=== PATIENT | female | born 1965 | race Caucasian/White ===

== ENCOUNTER 2018-02-10 16:25 | Emergency (ER) | payer OTHER ==
[~2018-02-10] VITALS: Ht 170.2 cm; Wt 88.5 kg
[2018-02-10 16:28] VITALS: BP 111/48
--- NOTE | 2018-02-10 16:33 | NUR ---
Patient transferred to bed 4 via wheelchair by tech. RN evaluating patient at bedside.
--- NOTE | 2018-02-10 16:45 | NUR ---
RIGHT SIDED HEAD/EYE PAIN S/P FALL LAST NIGHT; DENIES LOC; ALSO C/O RIGHT KNEE PAIN . BRUISES NOTED TO RIGHT FORHEAD. DENIES N/V/D; SKIN IS PINK/WARM/DRY; LUNGS CLEAR BL; HR EVEN AND REGULAR; PT DENIES ANY FEVER, CP, SOB, OR COUGH AT THIS TIME; PATIENT STATES PAIN OF 10/10 AT THIS TIME; VSS; PATIENT POSITIONED FOR COMFORT; HOB ELEVATED; BEDRAILS UP X2; BED DOWN. ER MD MADE AWARE OF PT STATUS.
[2018-02-10] MEDS ORDERED: KETOROLAC 15 MG/ML VIAL IM ONE (17:40)
[2018-02-10 18:47] VITALS: BP 118/52
[2018-02-10 19:37] LABS: BARBITURATE, URINE NEG. ng/ml (NEG <=200); BENZODIAZEPINE, URINE NEG. ng/mL (NEG <=200); CANNABINOID, URINE NEG. ng/mL (NEG <=50); COCAINE, URINE NEG. ng/mL (NEG <=300); OPIATE, URINE NEG. ng/mL (NEG <=2000); PHENCYCLIDINE SCREEN,URINE POS. ng/mL (NEG <=25)
== END 2018-02-10 18:47 | disposition home or self-care (01) ==
LOC: MED 16:25
DX: S00.11XA Contusion of right eyelid and periocular area, initial encounter (principal); F19.10 Other psychoactive substance abuse, uncomplicated; F10.99 Alcohol use, unspecified with unspecified alcohol-induced disorder; F17.210 Nicotine dependence, cigarettes, uncomplicated; Z88.8 Allergy status to other drugs, medicaments and biological substances; W19.XXXA Unspecified fall, initial encounter; Y93.89 Activity, other specified; Y92.89 Other specified places as the place of occurrence of the external cause; Y99.8 Other external cause status
CPT/HCPCS: 70450; 80305; 96372; 99285; J1885

== ENCOUNTER 2018-04-17 00:01 | Emergency (ER) | payer MEDICAID, OTHER ==
[~2018-04-17] VITALS: Ht 170.2 cm; Wt 89.8 kg
[2018-04-17 00:17] VITALS: BP 114/67
--- NOTE | 2018-04-17 00:19 | NUR ---
TO LOBBY A/W BED, ELLEN PEÑA NOTED
--- NOTE | 2018-04-17 00:45 | NUR ---
PT TAKEN TO BED 6
[2018-04-17] MEDS ORDERED: NACL 0.9% 1,000 ML IV ONE ×2 (01:00→02:40)
[2018-04-17] MEDS ORDERED: ONDANSETRON 4 MG/2 ML VIAL IVP ONE (01:00)
--- NOTE | 2018-04-17 01:27 | NUR ---
PT TAKEN TO CT
[2018-04-17 01:32] LABS: APPEARANCE,URINE CLEAR (CLEAR); BILIRUBIN,URINE 2+ (NEGATIVE); BLOOD, URINE 3+ (NEGATIVE); COLOR,URINE ORANGE (YELLOW); LEUKOCYTE ESTERASE ,URINE NEGATIVE (NEGATIVE); NITRITE, URINE NEGATIVE (NEGATIVE); UGLUCOSE NEGATIVE (NEGATIVE)
[2018-04-17 01:39] LABS: HEMATOCRIT 39.9 % (36-48); HEMOGLOBIN 13.5 g/dL (12.0-16.0); MEAN CORPUSCULAR HEMOGLOBIN 32 pg (27-31); MEAN CORPUSCULAR HGB CONC 34 g/dL (33-37); RED BLOOD CELL COUNT(AUTO) 4.25 MIL/uL (4.20-5.40); RED CELL DISTRIBUTION WIDTH 12.2 % (11.6-13.7); WHITE BLOOD COUNT (AUTO) 16.4 K/uL (4.8-10.8)
[2018-04-17 01:40] LABS: LYMPHOCYTES % (AUTO) 4.4 % (20.5-51.1); MONOCYTES % (AUTO) 4.7 % (1.7-9.3); NEUTROPHILS % (AUTO) 89.9 % (42.2-75.2); PLATELET COUNT (AUTO) 243 K/uL (140-450)
[2018-04-17 01:41] LABS: BASOPHILS # (AUTO) 0.1 K/uL (0.00-0.22); BASOPHILS % (AUTO) 0.8 % (0.0-2.0); EOSINOPHILS % (AUTO) 0.2 % (0.0-4.0); LYMPHOCYTES # (AUTO) 0.7 K/uL (2.5-16.5); MONOCYTES # (AUTO) 0.8 K/uL (0.8-1.0); NEUTROPHILS # (AUTO) 14.8 K/uL (1.8-7.7)
[2018-04-17 02:00] LABS: ANION GAP 14.5 (8-16); CARBON DIOXIDE 23.2 mmol/L (21-32); POTASSIUM 3.7 mmol/L (3.5-5.1)
[2018-04-17] MEDS ORDERED: MORPHINE SULFATE 4 MG/ML SYR IVP ONE (02:00)
[2018-04-17 02:01] LABS: CREATININE 0.8 mg/dL (0.6-1.3)
[2018-04-17] MEDS ORDERED: MORPHINE SULFATE 4 MG/ML SYR ONE (02:04)
[2018-04-17 02:06] LABS: ALBUMIN 4.4 g/dL (3.4-5.0); TOTAL BILIRUBIN 0.3 mg/dL (0.0-1.0)
[2018-04-17 02:08] LABS: RBC,URINE 11-20 (MOD) /HPF (0-5)
[2018-04-17 02:09] LABS: CALCIUM OXALATE CRYSTALS,UR 30-50 /HPF (None Seen); WBC,URINE 0-5 (RARE) /HPF (0-5)
--- NOTE | 2018-04-17 02:15 | NUR ---
PATIENT RESTING AT THIS TIME. NO SIGNS OF DISTRESS.
[2018-04-17] MEDS ORDERED: DICYCLOMINE 20 MG/2 ML VIAL IM ONE (02:40)
[2018-04-17 03:25] VITALS: BP 119/72
--- NOTE | 2018-04-17 03:25 | NUR ---
Patient discharged with v/s stable. Written and verbal after care instructions given and explained. Patient alert, oriented and verbalized understanding of instructions. Ambulatory with steady gait. All questions addressed prior to discharge. ID band removed. Patient advised to follow up with PMD. Rx of FLAGYL 500MG, BENTYL 20MG AND ZOFRAN 4MG given. Patient educated on indication of medication including possible reaction and side effects. Opportunity to ask questions provided and answered.
== END 2018-04-17 03:25 | disposition home or self-care (01) ==
LOC: MED 00:01
DX: R11.10 Vomiting, unspecified (principal); R19.7 Diarrhea, unspecified; Z88.6 Allergy status to analgesic agent; Z90.710 Acquired absence of both cervix and uterus
CPT/HCPCS: 36415; 74176; 80053; 81001; 81025; 83690; 85025; 96361; 96372; 96374; 96375; 99285; J0500; J2270; J2405; J7030; 99284

== ENCOUNTER 2018-06-27 19:04 | Emergency (ER) | payer MEDICAID ==
[~2018-06-27] VITALS: Ht 170.2 cm; Wt 89.8 kg
[2018-06-27 19:43] VITALS: BP 121/71
--- NOTE | 2018-06-27 19:48 | NUR ---
PT PROVIDED W/ URINE CUP FOR SAMPLE SENT TO LOBBY VSS, EVEN STEADY GAIT.
--- NOTE | 2018-06-27 21:19 | NUR ---
53 YO FEMALE, MEDICAL HX OF X2 TX IN PAST AND UTI. DENIES ALLERGIES. PT AAOX4 C/O BURNING SENSATION UPON URINATION. DENIES CP SOB @ THIS TIME. PT VOIDING; AMB TO RESTROOM. DENIES NAUSEA/VOMITING @ THIS TIME. NO TENDERNESS NOTED. NO ACUTE DISTRESS @ THIS TIME. WILL CONTINUE TO OBSERVE.
--- NOTE | 2018-06-27 21:19 | NUR ---
PT TO ER BED 2.
[2018-06-27] MEDS ORDERED: KETOROLAC 60 MG/2 ML VIAL IM ONE (23:05)
--- NOTE | 2018-06-27 23:14 | NUR ---
PT SENT TO [facility]IA [facility]/C WITH [facility] AAOX4
[2018-06-27 23:48] VITALS: BP 132/70
--- NOTE | 2018-06-27 23:48 | NUR ---
Patient discharged with v/s stable. Written and verbal after care instructions given and explained. Patient alert, oriented and verbalized understanding of instructions. Amb with steady gait. All questions addressed prior to discharge. ID band removed. Patient advised to follow up with PMD. Rx of MOTRIN, GABAPENTIN given. Patient educated on indication of medication including possible reaction and side effects. Opportunity to ask questions provided and answered.
== END 2018-06-27 23:48 | disposition home or self-care (01) ==
LOC: MED 19:04
DX: M54.42 Lumbago with sciatica, left side (principal); M54.41 Lumbago with sciatica, right side; F41.9 Anxiety disorder, unspecified
CPT/HCPCS: 72100; 81002; 81025; 96372; 99284; J1885

== ENCOUNTER 2019-04-18 17:46 | Emergency (ER) | payer MEDICAID ==
[~2019-04-18] VITALS: Ht 170.2 cm; Wt 89.8 kg
[2019-04-18 17:54] VITALS: BP 144/97
--- NOTE | 2019-04-18 17:58 | NUR ---
Patient ambulated to bed 4. RN evaluating patient at bedside.
--- NOTE | 2019-04-18 18:05 | NUR ---
53/F BIB SELF C/O RIGHT EAR PAIN, HEADACHE, SORE THORAT, COUGH, RUNNING NOSE, N/V, DIZZINESS X5 DAYS, NO MED HX. PATIENT STATES PAIN OF 8/10 AT THIS TIME; PATIENT POSITIONED FOR COMFORT; HOB ELEVATED; BEDRAILS UP X1; BED DOWN. ER MD MADE AWARE OF PT STATUS.
--- NOTE | 2019-04-18 19:04 | NUR ---
Olga adams in ED - 04/18/19 at 1907 by [email or web address] Pt report given to KARLA BECKER. Transfer of care at this time.
--- NOTE | 2019-04-18 19:12 | NUR ---
Pt report given to ZIGGY BECKER. Transfer of care at this time.
--- NOTE | 2019-04-18 19:13 | NUR ---
RECEIVED REPORT AT BEDSIDE FROM ROSITA MEJIA, ASSUMED CARE AT THIS TIME. PT RESTING IN BED. VSS.
[2019-04-18 20:28] VITALS: BP 134/81
--- NOTE | 2019-04-18 20:28 | NUR ---
Patient discharged with v/s stable. Written and verbal after care instructions given and explained. Patient alert, oriented and verbalized understanding of instructions. Ambulatory with steady gait. All questions addressed prior to discharge. ID band removed. Patient advised to follow up with PMD. Rx of PROMETHAZINE, CLARITIN, MOTRIN, FLONASE WAS given. Patient educated on indication of medication including possible reaction and side effects. Opportunity to ask questions provided and answered. PT STATED HER PAIN LEVEL WAS 3/10 PRIOR TO D/C
== END 2019-04-18 20:28 | disposition home or self-care (01) ==
LOC: MED 17:46
DX: J30.9 Allergic rhinitis, unspecified (principal); Z86.79 Personal history of other diseases of the circulatory system
CPT/HCPCS: 99283

== ENCOUNTER 2019-04-25 20:47 | Emergency (ER) | payer MEDICAID ==
[~2019-04-25] VITALS: Ht 170.2 cm; Wt 85.3 kg
--- NOTE | 2019-04-25 20:47 | NUR ---
53 Y/O FEMALE PRESENTS TO ED , PRE-BOOK, BIB [facility]. PT WAS IN [facility] TODAY , +[place]AT[place]ELT, -AIR BAG, -LOC. PT HAS NO COMPLAINTS OF PAIN. REDNESS NOTED TO LEFT SHOULDER, NO OPEN SKIN. PMH ANXIETY, GALL STONES. PT HAS SLURRED SPEECH. SMELLS OF ALCOHOL. ER AWARE. [place] [facility] AT CHAIR SIDE. CONTINUE TO MONITOR.
--- NOTE | 2019-04-25 20:47 | NUR ---
PT LYLY CARLOS, PREBOOK. TAKEN TO CHAIR E
[2019-04-25 20:56] VITALS: BP 152/91
--- NOTE | 2019-04-25 23:00 | NUR ---
Dr. Edmonds examining patient.
[2019-04-25] MEDS ORDERED: ALUMINUM HYD/MAG/SIMETHICONE 30 ML UDC PO ONE (23:05)
--- NOTE | 2019-04-25 23:15 | NUR ---
PATIENT EXAMINED BY DR. ORTEGA. PATIENT MEDICALLY CLEARED AND RELEASED IN CUSTODY IN STABLE CONDITION. ORIGINAL PRE-BOOK FORM GIVEN TO OFFICER.
[2019-04-25 23:19] VITALS: BP 148/86
== END 2019-04-25 23:15 ==
LOC: MED 20:47
DX: F41.9 Anxiety disorder, unspecified (principal); K21.9 Gastro-esophageal reflux disease without esophagitis; Z02.89 Encounter for other administrative examinations; V89.2XXA Person injured in unspecified motor-vehicle accident, traffic, initial encounter; Y93.89 Activity, other specified; Y92.89 Other specified places as the place of occurrence of the external cause; Y99.8 Other external cause status
CPT/HCPCS: 99283

== ENCOUNTER 2022-06-25 23:06 | Emergency (ER) | payer MEDICAID ==
[~2022-06-25] VITALS: Ht 167.6 cm; Wt 95.3 kg
[2022-06-25 23:06] VITALS: BP 138/90
--- NOTE | 2022-06-25 23:32 | NUR ---
PT VICKIE DANIELS. TAKEN TO CHAIR
[2022-06-26] MEDS ORDERED: KETOROLAC 60 MG/2 ML VIAL IM ONE (00:10)
[2022-06-26] MEDS ORDERED: KETOROLAC 30 MG/ML VIAL IVP ONE (00:20)
--- NOTE | 2022-06-26 00:45 | NUR ---
Dr. Arcos examining patient.
[2022-06-26 00:54] VITALS: BP 133/90
--- NOTE | 2022-06-26 00:54 | NUR ---
Patient discharged with v/s stable. Written and verbal after care instructions given and explained. Patient verbalized understanding. Ambulatory with steady gait. All questions addressed prior to discharge. Advised to follow up with PMD.
[2022-06-26] MEDS ORDERED: NAPR-54 PO (00:58)
--- NOTE | 2022-06-26 01:06 | NUR ---
Patient went home by [facility].
== END 2022-06-26 00:54 | disposition home or self-care (01) ==
LOC: MED 23:06
DX: S09.90XA Unspecified injury of head, initial encounter (principal); I25.10 Atherosclerotic heart disease of native coronary artery without angina pectoris; K21.9 Gastro-esophageal reflux disease without esophagitis; Y04.2XXA Assault by strike against or bumped into by another person, initial encounter; Y93.89 Activity, other specified; Y92.89 Other specified places as the place of occurrence of the external cause; Y99.8 Other external cause status
CPT/HCPCS: 70450; 96374; 99284; J1885

== ENCOUNTER 2024-02-12 13:46 | Emergency (ER) | payer MEDICAID ==
[~2024-02-12] VITALS: Ht 170.2 cm; Wt 93.9 kg
[~2024-02-12 13:46] MED LIST: NAPR-337 PO
[2024-02-12 14:05] VITALS: BP 131/75; PULSE 73; RESP 18; TEMP 97.8; O2SAT 96
[2024-02-12] MEDS: KETOROLAC 30 MG/ML VIAL IM ONE (14:28)
[2024-02-12] MEDS ORDERED: IBUP-2213 PO (15:31)
[2024-02-12] MEDS ORDERED: METH-1681 PO (15:31)
[2024-02-12 15:55] VITALS: BP 130/82; PULSE 77; RESP 16; TEMP 98; O2SAT 99
== END 2024-02-12 15:55 | disposition home or self-care (01) ==
LOC: MED 13:46
DX: S60.222A Contusion of left hand, initial encounter (principal); S60.212A Contusion of left wrist, initial encounter; S46.912A Strain of unspecified muscle, fascia and tendon at shoulder and upper arm level, left arm, initial encounter; R03.0 Elevated blood-pressure reading, without diagnosis of hypertension; K21.9 Gastro-esophageal reflux disease without esophagitis; Z79.1 Long term (current) use of non-steroidal anti-inflammatories (NSAID); Z79.899 Other long term (current) drug therapy; W18.39XA Other fall on same level, initial encounter; Y93.89 Activity, other specified; Y92.89 Other specified places as the place of occurrence of the external cause; Y99.8 Other external cause status
CPT/HCPCS: 29125; 73030; 73110; 73130; 96372; 99284; J1885